=== PATIENT | male | born 1940 | race Caucasian/White ===

== ENCOUNTER → 2020-09-11 08:30 | Outpatient (BNVA) | payer MEDICARE, SELFPAY | PROVIDERS: PCP Internal Medicine; Visit Provider Hospitalist | DX: J44.9 Chronic obstructive pulmonary disease, unspecified (principal); G47.33 Obstructive sleep apnea (adult) (pediatric); I48.91 Unspecified atrial fibrillation; Z79.01 Long term (current) use of anticoagulants; Z79.899 Other long term (current) drug therapy; Z99.89 Dependence on other enabling machines and devices | CPT/HCPCS: 99212 ==

== ENCOUNTER 2021-03-12 08:59 | Outpatient (REF) | payer MEDICARE, SELFPAY ==
--- NOTE | 2021-03-12 17:46 | PFT_ITS ---
INDICATION: COPD. SPIROMETRY: The FEV1 to FVC of 71% post bronchodilators, 65% pre-bronchodilators. The FEV1 is 2.69 L, which is 86% predicted, and an FVC of 2.78 L, which is 86% predicted. No significant response to bronchodilators noted. Maximum voluntary ventilation 107% predicted. LUNG VOLUMES: Total lung capacity 87% predicted with an expiratory reserve volume of 48% predicted likely from elevated BMI. DIFFUSION CAPACITY: DLCO 64% predicted. COMPARISONS: Not available. INTERPRETATION: There is an obstructive ventilatory defect consistent with mild COPD. The patient does have some degree of reversibility suggesting asthma/COPD overlap syndrome. The maximum voluntary ventilation is within normal limits. Lung volumes are within normal limits except for decrease in the ERV secondary to likely an elevated BMI. There is some mild diffusion impairment secondary to likely emphysema and other parenchymal lung conditions should be considered. Clinical correlation warranted. MD MARIAN Joshua/MODL / [id number]
== END 2021-03-12 09:00 | disposition home or self-care (01) ==
LOC: HO.RESP 08:59
PROVIDERS: PCP Internal Medicine; Visit Provider Hospitalist
DX: J44.9 Chronic obstructive pulmonary disease, unspecified (principal)
CPT/HCPCS: 94060; 94727; 94729; 99212

== ENCOUNTER → 2022-11-21 08:59 | Outpatient (BNVA) | payer MEDICARE, SELFPAY | PROVIDERS: PCP Internal Medicine; Visit Provider Hospitalist | DX: J41.0 Simple chronic bronchitis (principal); G47.33 Obstructive sleep apnea (adult) (pediatric); Z79.899 Other long term (current) drug therapy; Z99.89 Dependence on other enabling machines and devices | CPT/HCPCS: 99212 ==

== ENCOUNTER → 2023-03-02 09:18 | Outpatient (BNVA) | payer MEDICARE, SELFPAY | PROVIDERS: PCP Internal Medicine; Visit Provider Hospitalist | DX: J41.0 Simple chronic bronchitis (principal); G47.33 Obstructive sleep apnea (adult) (pediatric); Z99.89 Dependence on other enabling machines and devices | CPT/HCPCS: 99212 ==

== ENCOUNTER 2024-03-28 08:31 | Outpatient (AMB) | payer MEDICARE, SELFPAY ==
[2024-03-28 08:36] VITALS: BP 124/70; PULSE 80; O2SAT 96; BMI 32.5
--- NOTE | 2024-03-28 08:36 | MHC.OFFVIS ---
Vital Signs 03/28/24 08:36 Height 6 ft Weight 240 lb BMI 32.5 BP 124/70 Blood Pressure Location Lt brachial Position Sitting Pulse 80 Pulse Source Pulse Oximeter Pulse Oximetry (%) 96 Oxygen Delivery Method Room Air Intake Visit Reasons: COPD [employer] Required: No Allergies No Known Allergies Allergy (Verified 03/28/24 08:39) HPI Comments Details: The patient is a 83-year-old gentleman with a known history of cigar smoking for many years in addition to history of obstructive sleep apnea on CPAP, CAD and also atrial fibrillation on Eliquis. Patient states that he has been short of breath now for many months. Apparently seems to be getting worse. Usually the shortness of breath occurs when he is climbing a flight of stairs a going up an incline. He starts having issues with his breathing. He denies any significant cough or productive sputum. He denies any chest pain. He has been evaluated for his cardiac disease. He did have a cardiac catheterization finding minimal disease not requiring percutaneous intervention. He did have a chest x-ray done at [facility], but, I do not have any access at this time. Will request to evaluate. In the office we did go for brief walking oximetry in his heart rate did increase quickly to 130 and his pulse ox maintained around 95 96%. Patient became minimally symptomatic when his heart rate increased. 11/21/2022 the patient has a telehealth visit. Overall the patient is doing well. Unfortunately, his CPAP is no longer working appropriately. The machine is signaling that is no longer effective and that he needs to get a replacement. He did call the [employer] company and they recommended that he get any script in order to get and replacement CPAP. He does uses CPAP every night. The CPAP therapy has been affecting beneficial for many years. He does use it for more than 4 hours a night. Therefore, will go ahead and send a script to his [employer] company, [employer] for replacement AirSense 11 APAP. He should bring it in the springtime in order for us to further adjusted. From a respiratory status patient is doing well he continues with current respiratory regimen. He has not required any recent antibiotics or prednisone. He continues on his blood thinners. Otherwise patient is without any other complaints. Will follow-up in the spring once he gets his new machine. 03/02/2023 the patient is here for a pulmonary follow-up visit. Overall the patient has been doing well. He is finally getting his new CPAP. She will be getting in the next few weeks. Hopefully after he gets that I can get access to air p.o. and assess his response to therapy. The patient has been using CPAP for many years and he is accustomed to it any cannot sleep without it. He does use it for more than 4 hours a night. In the meantime his respiratory status has been at baseline. She continues use the Incruse with good effect. Denies any significant shortness of breath or chest tightness or coughing. No recent x-rays that he has had. His last PFTs demonstrated mild COPD. It looks like the patient may need to undergo a total knee replacement because of his significant osteoarthritis of the right knee. Although he still contemplating it. I did review the risks with him in regards of his underlying respiratory condition. He only carries a mild risk for any perioperative pulmonary complications and I do believe that he will tolerate anesthesia and surgery very well from a respiratory status. The patient may also need a pneumonia vaccine I did recommend he get the Prevnar 20. He will talk to his in consider getting it at the local pharmacy. Will follow-up in a year's time or sooner if treat any new issues arise. 03/28/2024 the patient is here for a pulmonary follow-up visit. The patient overall has been doing well. He is upset that he has not been able to get his Incruse. I did send to the pharmacy now with 11 refills so he should not have any issues. The Incruse has been effective for him. He does needed regularly. Specially during his hot and humid months started coming up. The patient has not had to use any rescue medicine. In the meantime he has been using the CPAP. The CPAP therapy continues to be affecting beneficial. He uses more than 4 hours a night. I did download the data on seems like his AHI is elevated up to 12. He is currently set up with an APAP 6-18. Average pressure is around 9 in sometimes he goes up to 16 cm. Therefore I did increase the pressures up to 18-20. Hopefully his AHI goes a little better. About 5 of the events were central apneas therefore he may have a component of complex sleep apnea so we have to monitor closely for any worsening central apneas on the higher pressure. The patient will try the pressures then let me know if he does not tolerate him I can switch him back. In the meantime he will talk to his primary care doctor about getting the Prevnar 20. He should also get the RSV vaccine. And should also get the flu shot. He is already gotten his COVID vaccinations. As far as imaging studies we do not have anything on file. Therefore he will have an x-ray when it is convenient for him. He has any worsening symptoms or concerns she can always call for an earlier assessment. Otherwise I will see him in a year. [facility] Medical History (Updated 03/28/24 @ 20:45 by Damion Singleton MD) Pneumonia Afib REX on CPAP COPD (chronic obstructive pulmonary disease) Social History (Updated 11/21/22 @ 09:01 by KIRA Ortiz) Patient Tobacco Use Status: Former Tobacco user Tobacco use type: Cigarette Years Smoked: 25 Years Review of Systems Const Denies daytime sleepiness, Denies night sweats and Denies snoring ENT Denies change in voice, Denies lip swelling, Denies mouth pain, Reports nasal congestion, Reports nasal discharge and Denies tongue swelling Card Denies chest pain Resp Denies cough and Denies snoring GI Denies abdominal pain Musc Reports as per HPI, Reports abnormal gait, Reports arthralgias and Reports joint swelling Neuro Denies Neuro-related abnormal movements and Reports abnormal gait Psych Denies no additional complaints Julio César/Lymph Denies easy bleeding and Denies lymphadenopathy Aller/Immun Denies lip swelling and Denies tongue swelling Physical Exam Vital Signs: Last Vital Signs Pulse 80 03/28/24 08:36 BP 124/70 03/28/24 08:36 Pulse Ox 96 03/28/24 08:36 Oxygen Delivery Method Room Air 03/28/24 08:36 BMI result Body Mass Index 32.5 Const General: alert Neck Neck: Yes normal visual inspection, Yes full ROM and Yes no lymphadenopathy Chest Chest palpation & inspection: normal inspection of the chest Resp Auscultation: diminished lung sounds Cardio Rate: regular rate Rhythm: regular rhythm Heart sounds: S1 normal heart sound present and S2 normal heart sound present GI Palpation (GI): Soft to palpation and nontender Auscultation: normal bowel sounds Skin General skin exam: rashes and/or lesions noted Assessment & Plan Assessment & Plan (1) REX on CPAP: Code(s): G47.33 - Obstructive sleep apnea (adult) (pediatric); Z99.89 - Dependence on other enabling machines and devices Category: Medical (2) COPD (chronic obstructive pulmonary disease): Code(s): J44.9 - Chronic obstructive pulmonary disease, unspecified Category: Medical Qualifiers: COPD type: chronic bronchitis Chronic bronchitis type: simple Qualified Code(s): J41.0 - Simple chronic bronchitis Plan Continue Incruse daily HENOK as needed continue APAP, AHI is elevated 12, increase APAP 6-18 to 8-20 CXR F/U 12 months Orders: Orders XR chest 2V Today J41.0 - Simple chronic bronchitis Medications: Refilled Incruse Ellipta 62.5 mcg/actuation (umeclidinium) 1 inh inhalation DAILY 30 ea 11RF NS J41.0 - Simple chronic bronchitis Coding Level of Care Code Est Pt Level 4 (37649) Diagnoses REX on CPAP G47.33; Z99.89 Simple chronic bronchitis J41.0 COPD type: chronic bronchitis Chronic bronchitis type: simple Time Spent (min) 16
== END 2024-03-28 08:55 | disposition home or self-care (01) ==
PROVIDERS: PCP Internal Medicine; Visit Provider Hospitalist
DX: G47.33 Obstructive sleep apnea (adult) (pediatric) (principal); Z99.89 Dependence on other enabling machines and devices; J41.0 Simple chronic bronchitis
CPT/HCPCS: 99214

== ENCOUNTER → 2024-03-28 08:31 | Outpatient (BNVA) | payer MEDICARE, SELFPAY | PROVIDERS: PCP Internal Medicine; Visit Provider Hospitalist | DX: G47.33 Obstructive sleep apnea (adult) (pediatric) (principal); J41.0 Simple chronic bronchitis; Z99.89 Dependence on other enabling machines and devices | CPT/HCPCS: 99212 ==

== ENCOUNTER 2024-08-01 10:17 | Outpatient (REF) | payer MEDICARE, SELFPAY ==
--- NOTE | ~2024-08-01 | XR_ITS ---
EXAMINATION: XR CHEST 2 VIEWS CLINICAL INFORMATION: Simple chronic bronchitis. COMPARISON: None. TECHNIQUE: Frontal and lateral views of the chest were obtained. FINDINGS: The heart, great vessels, pulmonary vasculature and mediastinum are normal. There is atherosclerotic calcification of the aortic knob. The lungs show no focal infiltrate, effusion or pneumothorax. There is mild bilateral peribronchial wall thickening. There is no acute osseous abnormality. XR/XR chest 2V IMPRESSION: 1. No focal infiltrate or congestive heart failure is seen. 2. There is mild peribronchial wall thickening, consistent with the provided history of chronic bronchitis. Electronically signed by: Rupert Coleman MD 08/01/2024 05:08 PM EDT
== END 2024-08-01 10:18 | disposition home or self-care (01) ==
LOC: HO.XRAY 10:17
PROVIDERS: PCP Internal Medicine; Visit Provider Hospitalist
DX: J41.0 Simple chronic bronchitis (principal)
CPT/HCPCS: 71046

== ENCOUNTER 2025-07-25 08:25 | Outpatient (AMB) | payer MEDICARE, SELFPAY ==
--- NOTE | 2025-07-25 08:29 | MHC.OFFVIS ---
Vital Signs 07/25/25 08:30 Height 6 ft Weight 245 lb 13.047 oz BMI 33.3 BP 142/78 H Blood Pressure Location Lt brachial Position Sitting Pulse 83 Pulse Source Pulse Oximeter Pulse Oximetry (%) 96 Oxygen Delivery Method Room Air Intake Visit Reasons: COPD Filter Tank Tender Required: No Accompanied by: Self / Same As Patient Allergies No Known Allergies Allergy (Verified 07/25/25 08:32) HPI Comments Details: The patient is a 85-year-old gentleman with a known history of cigar smoking for many years in addition to history of obstructive sleep apnea on CPAP, CAD and also atrial fibrillation on Eliquis. Patient states that he has been short of breath now for many months. Apparently seems to be getting worse. Usually the shortness of breath occurs when he is climbing a flight of stairs a going up an incline. He starts having issues with his breathing. He denies any significant cough or productive sputum. He denies any chest pain. He has been evaluated for his cardiac disease. He did have a cardiac catheterization finding minimal disease not requiring percutaneous intervention. He did have a chest x-ray done at [facility], but, I do not have any access at this time. Will request to evaluate. In the office we did go for brief walking oximetry in his heart rate did increase quickly to 130 and his pulse ox maintained around 95 96%. Patient became minimally symptomatic when his heart rate increased. 11/21/2022 the patient has a telehealth visit. Overall the patient is doing well. Unfortunately, his CPAP is no longer working appropriately. The machine is signaling that is no longer effective and that he needs to get a replacement. He did call the [employer] company and they recommended that he get any script in order to get and replacement CPAP. He does uses CPAP every night. The CPAP therapy has been affecting beneficial for many years. He does use it for more than 4 hours a night. Therefore, will go ahead and send a script to his [employer] company, [employer] for replacement AirSense 11 APAP. He should bring it in the springtime in order for us to further adjusted. From a respiratory status patient is doing well he continues with current respiratory regimen. He has not required any recent antibiotics or prednisone. He continues on his blood thinners. Otherwise patient is without any other complaints. Will follow-up in the spring once he gets his new machine. 03/02/2023 the patient is here for a pulmonary follow-up visit. Overall the patient has been doing well. He is finally getting his new CPAP. She will be getting in the next few weeks. Hopefully after he gets that I can get access to air p.o. and assess his response to therapy. The patient has been using CPAP for many years and he is accustomed to it any cannot sleep without it. He does use it for more than 4 hours a night. In the meantime his respiratory status has been at baseline. She continues use the Incruse with good effect. Denies any significant shortness of breath or chest tightness or coughing. No recent x-rays that he has had. His last PFTs demonstrated mild COPD. It looks like the patient may need to undergo a total knee replacement because of his significant osteoarthritis of the right knee. Although he still contemplating it. I did review the risks with him in regards of his underlying respiratory condition. He only carries a mild risk for any perioperative pulmonary complications and I do believe that he will tolerate anesthesia and surgery very well from a respiratory status. The patient may also need a pneumonia vaccine I did recommend he get the Prevnar 20. He will talk to his in consider getting it at the local pharmacy. Will follow-up in a year's time or sooner if treat any new issues arise. 03/28/2024 the patient is here for a pulmonary follow-up visit. The patient overall has been doing well. He is upset that he has not been able to get his Incruse. I did send to the pharmacy now with 11 refills so he should not have any issues. The Incruse has been effective for him. He does needed regularly. Specially during his hot and humid months started coming up. The patient has not had to use any rescue medicine. In the meantime he has been using the CPAP. The CPAP therapy continues to be affecting beneficial. He uses more than 4 hours a night. I did download the data on seems like his AHI is elevated up to 12. He is currently set up with an APAP 6-18. Average pressure is around 9 in sometimes he goes up to 16 cm. Therefore I did increase the pressures up to 18-20. Hopefully his AHI goes a little better. About 5 of the events were central apneas therefore he may have a component of complex sleep apnea so we have to monitor closely for any worsening central apneas on the higher pressure. The patient will try the pressures then let me know if he does not tolerate him I can switch him back. In the meantime he will talk to his primary care doctor about getting the Prevnar 20. He should also get the RSV vaccine. And should also get the flu shot. He is already gotten his COVID vaccinations. As far as imaging studies we do not have anything on file. Therefore he will have an x-ray when it is convenient for him. He has any worsening symptoms or concerns she can always call for an earlier assessment. Otherwise I will see him in a year. 07/25/2025 the patient is here for pulmonary follow-up visit. Overall he is doing okay although he complains of increasing dyspnea on exertion. Thinks that he was able to do before he can not do as easily. He has been more breathless. He has also gained some weight. The patient also has atrial fibrillation and has blood thinners for that. He has been on Incruse for long time and he has also been on CPAP therapy which has been affecting beneficial. He does use it for more than 4 hours a night. We did download the CPAP and appears that his AHI is elevated he also has a component of central apneas. Therefore we adjusted the CPAP from 8-20 to 10-16 with a ramp of 8. Will see tolerate start to try to minimize the central apneas and also optimize the obstructive therapy. We did go for brief walking oximetry. The patient has oxygen was within normal limits throughout the ambulation in the high 90s. However, heart rate did increase to the 130s and was regularly irregular consistent with his AFib. I do believe that in part his shortness breath is from the increased tachyarrhythmia when he does exert himself. In the meantime though he has been on Incruse for long time so therefore will maximize his respiratory therapy by switching her over to [facility] to have maximum respiratory coverage. Will plan to do pulmonary function studies. The patient also had an x-ray back in March which without any acute disease. I did personally review. 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 He is concerned for potential asbestos exposure. Will go ahead and request a CAT scan to better address any interstitial lung disease due to pneumoconiosis. Will follow-up after the CAT scan after the PFTs. Will see how he does with the additional medication and he will follow-up with Cardiology regarding the increased heart rate. [facility] Medical History (Updated 07/25/25 @ 20:23 by Damion Singleton MD) Dyspnea Chronic cough Pneumonia Afib REX on CPAP COPD (chronic obstructive pulmonary disease) Social History Patient Tobacco Use Status: Former Tobacco user Tobacco use type: Cigarette Years Smoked: 25 Years Review of Systems Const Denies daytime sleepiness, Denies night sweats and Denies snoring ENT Denies change in voice, Denies lip swelling, Denies mouth pain, Reports nasal congestion, Reports nasal discharge and Denies tongue swelling Card Denies chest pain and Reports dyspnea on exertion Resp Denies cough, Reports dyspnea on exertion and Denies snoring GI Denies abdominal pain Musc Reports as per HPI, Reports abnormal gait, Reports arthralgias and Reports joint swelling Neuro Denies Neuro-related abnormal movements and Reports abnormal gait Psych Denies no additional complaints Julio César/Lymph Denies easy bleeding and Denies lymphadenopathy Aller/Immun Denies lip swelling and Denies tongue swelling Physical Exam Vital Signs: Last Vital Signs Pulse 83 07/25/25 08:30 BP 142/78 H 07/25/25 08:30 Pulse Ox 96 07/25/25 08:30 Oxygen Delivery Method Room Air 07/25/25 08:30 BMI result Body Mass Index 33.3 Const General: alert Neck Neck: Yes normal visual inspection, Yes full ROM and Yes no lymphadenopathy Chest Chest palpation & inspection: normal inspection of the chest Resp Auscultation: diminished lung sounds Cardio Rate: regular rate Rhythm: regular rhythm Heart sounds: S1 normal heart sound present and S2 normal heart sound present GI Palpation (GI): Soft to palpation and nontender Auscultation: normal bowel sounds Skin General skin exam: rashes and/or lesions noted Assessment & Plan Assessment & Plan (1) REX on CPAP: Code(s): G47.33 - Obstructive sleep apnea (adult) (pediatric); Z99.89 - Dependence on other enabling machines and devices Category: Medical (2) COPD (chronic obstructive pulmonary disease): Code(s): J44.9 - Chronic obstructive pulmonary disease, unspecified Category: Medical Qualifiers: COPD type: chronic bronchitis Chronic bronchitis type: simple Qualified Code(s): J41.0 - Simple chronic bronchitis (3) Chronic cough: Code(s): R05.3 - Chronic cough Category: Medical (4) Dyspnea: Code(s): R06.00 - Dyspnea, unspecified Category: Medical Qualifiers: Dyspnea type: dyspnea on exertion Qualified Code(s): R06.09 - Other forms of dyspnea Plan stop Incruse daily start trelegy HENOK as needed PFTs CT chest continue APAP, AHI is elevated 12, increase APAP 6-18 to 8-20 F/U 3-4 months Orders: Orders CT chest wo IV con Today R05.3 - Chronic cough, R06.00 - Dyspnea, unspecified PFT pulmonary function test Today R05.3 - Chronic cough, R06.00 - Dyspnea, unspecified Medications: New exsapsigiqs-oevmolump-uljanqzn 100-62.5-25 mcg (Trelegy Ellipta) 1 inh inhalation DAILY 60 ea 11RF 30 days J44.9 - Chronic obstructive pulmonary disease, unspecified Discontinued Incruse Ellipta 62.5 mcg/actuation (umeclidinium) Discontinued Reason: Doctor's Order 1 inh inhalation DAILY 30 ea 11RF NS J41.0 - Simple chronic bronchitis Coding Level of Care Code Est Pt Level 4 (35729) Complex EM visit Add On G2211 Diagnoses REX on CPAP G47.33; Z99.89 Simple chronic bronchitis J41.0 COPD type: chronic bronchitis Chronic bronchitis type: simple Chronic cough R05.3 Dyspnea on exertion R06.09 Dyspnea type: dyspnea on exertion Time Spent (min) 17
[2025-07-25 08:30] VITALS: BP 142/78; PULSE 83; O2SAT 96; BMI 33.3
--- OUTSIDE RECORDS SUMMARY | 2025-07-25 09:56 | XMS_ITS ---
Author Name [facility] ([place], [place]) Organization Unknown Encounters Encounter Type Encounter Reason Primary Diagnosis Location Date Ambulatory [facility] 09/06/2024 Care Team Organization Name Specialty Phone Email Start Date End Da te [facility] Patsy Arcos Primary Care 04/21/2025 [facility] 2024 [facility] WENCESLAO HERNANDEZ Primary Care 08/18/2024
--- OUTSIDE RECORDS SUMMARY | 2025-07-25 09:56 | XMS_ITS | Patient Health Record ---
[facility] Organization [facility] Address [address] [place] [address] Care Team Providers Care Supervisor Metal Hanging Name Role Phone LENY MCCOY Unavailable [phone] MARRY HERNANDEZ Unavailable [phone] Allergies No Known Allergies Results Component Value Reference Range Notes GLYCOHEMOGLOBIN PROFILE Reviewed date:09/08/2024 08:07:01 AM Interpretation: Performing Lab: Notes/Report: Residential Lawn Specialist - Beatrice Rubin MD [address] [id number] [employer] a member of [facility] Original Ordering Provider: LENY MCCOY [employer] T[employer] GLYCATED HEMOGLOBIN A1C 5.9 <6.5 % ESTIMATED AVERAGE GLUCOSE 123 TSH Reviewed date:09/07/2024 12:58:38 PM Interpretation: Performing Lab: Notes/Report: Residential Lawn Specialist - Beatrice Rubin MD [address] [place] [address] [employer] a member of [facility] TSH 2.62 0.40-4.00 uIU/ml VITAMIN D, 25-HYDROXY Reviewed date:09/07/2024 12:58:38 PM Interpretation: Performing Lab: Notes/Report: VITAMIN D, 25-HYDROXY 44 30-80 ng/mL LIPID PROFILE Reviewed date:09/07/2024 12:58:58 PM Interpretation: Performing Lab: Notes/Report: CHOLESTEROL 190 0-200 mg/dL TRIGLYCERIDES 146 0-150 mg/dL HDL CHOLESTEROL 48 >40 mg/dL LDL CALCULATED 113 0-100 mg/dL TC-HDLC RATIO 4.0 0-4.4 mg/dL COMPREHENSIVE METABOLIC PANE L Reviewed date:09/07/2024 12:58:58 PM Interpretation: Performing Lab: Notes/Report: Note Original Orderi ng Provider: LENY MCCOY [employer] T[employer] GLUCOSE 163 70-100 mg/dL Reference range applicable to fasting specimens only BUN 23 5-25 mg/dL CREAT 1.30 0.7-1.3 mg/dL GLOMERULAR FILTRATION RATE 55 >60 This eGFR result was calculated using the CKD-EPI 2020 Creatinine Equation SODIUM 140 135-145 mEq/L POTASSIUM 4.5 3.5-5.5 mmol/L CHLORIDE 105 96-110 mmol/L CO2 30 21-32 mmol/L ANION GAP 5 3-11 CALCIUM 10.3 8.5-10.5 mg/dL TOTAL PROTEIN 6.8 6.0-8.0 G/dL ALBUMIN 3.7 3.2-5.0 G/dL BILI,TOTAL 0.8 0.0-1.4 mg/dL SGOT 19 10-42 U/L SGPT 24 10-60 U/L ALK PHOS 85 42-121 U/L URINALYSIS WITH REFLEX MICRO SCOPIC Reviewed date:03/09/2025 11:42:06 AM Interpretation: Performing Lab: Notes/Report: Specific [place] Urine 1.021 1.003-1.030 pH, Urine 5.5 5.0-8.0 pH Leukocytes, Urine Trace Negative Nitrite, Urine Negative Negative Protein, Urine 30 <=Trace mg/dL Glucose, Urine Negative Negative mg/dL Ketones, Urine Negative Negative mg/dL Urobilinogen, Urine 1.0 0.2-1.0 mg/dL Bilirubin, Urine Negative Negative Blood, Urine Negative Negative RBC, Urine 4.4 0-4 /HPF WBC, Urine 1.2 0-4 /HPF Squamous Epithelial, Urine 7 0-60 /LPF Bacteria, Urine Negative Negative /HPF Hyaline Casts, Urine 1.2 0-3 /LPF HEMOGLOBIN A1C Reviewed date:03/10/2025 07:35:01 AM Interpretation: Performing Lab: Notes/Report: Hemoglobin A1C 6.1 <6.5 % Mean Bld Glu Estim. 128 THYROID STIMULATING HORMONE WITH REFLEX TO FREE T4 AND FREE T3 Reviewed date:03/09/2025 02:40:42 PM Interpretation: Performing Lab: Notes/Report: TSH 2.48 0.40-4.00 mcIU/mL COMPREHENSIVE METABOLIC PANE L Reviewed date:03/09/2025 12:33:23 PM Interpretation: Performing Lab: Notes/Report: Sodium 143 133-145 mmol/L Potassium 4.6 3.5-5.5 mmol/L Chloride 107 96-110 mmol/L CO2 28 21-32 mmol/L Anion Gap 8 3-11 Glucose 117 70-100 mg/dL BUN 17 5-25 mg/dL Creatinine 1.20 0.70-1.30 mg/dL eGFR 60 >=60 mL/min/1.73m2 Calculati on based on the?Chronic Kidney Disease Epidemiology Collaboration (CKD-EPI) equation refit?without adjustment for race. BUN/Creatinine Ratio 14.2 Calcium 9.7 8.5-10.5 mg/dL AST (SGOT) 15 10-42 unit/L ALT (SGPT) 21 10-60 unit/L Alkaline Phosphatase 83 42-121 unit/L Total Protein 6.9 6.0-8.0 g/dL Albumin 3.7 3.2-5.0 g/dL Total Bilirubin 1.1 0.0-1.4 mg/dL VITAMIN D 25 HYDROXY Reviewed date:03/09/2025 01:19:03 PM Interpretation: Performing Lab: Notes/Report: Vit D, 25-Hydroxy 49.2 30.0-80.0 ng/mL LIPID PANEL WITH REFLEX TO D IRECT LDL Reviewed date:03/09/2025 12:33:27 PM Interpretation: Performing Lab: Notes/Report: Cholesterol 168 0-200 mg/dL Triglycerides 97 0-150 mg/dL HDL 49 >=40 mg/dL LDL Calculated 100 0-100 mg/dL VLDL Cholesterol Ronald 19.4 Non HDL Chol. (LDL+VLDL) 119 <145 mg/dL Chol/HDL Ratio 3.4 0.0-4.4 CBC WITH AUTO DIFFERENTIAL Reviewed date:03/09/2025 12:33:23 PM Interpretation: Performing Lab: Notes/Report: WBC 7.7 4.8-10.8 K/mcL RBC 5.20 4.50-5.50 M/mcL Hemoglobin 15.4 13.5-17.5 g/dL Hematocrit 47.6 42.0-54.0 % MCV 92.1 79.0-98.0 FL MCH 29.8 27.0-32.0 pcg MCHC 32.4 32.0-37.0 g/dL RDW 14.1 11.0-15.0 % Platelets 207 130-400 K/mcL MPV 12.2 7.0-11.0 FL NRBC 0.0 <1.0 % NRBC Absolute 0.00 <0.10 K/mcL Neutrophils Relative 73.5 Lymphocytes Relative 15.0 Monocytes Relative 8.9 Eosinophils Relative 1.2 Basophils Relative 0.9 Immature Granulocytes Relative 0.5 Neutrophils Absolute 5.68 1.50-7.00 K/mcL Lymphocytes Absolute 1.16 1.00-5.00 K/mcL Monocytes Absolute 0.69 0.20-1.00 K/mcL Eosinophils Absolute 0.09 0.00-0.50 K/mcL Basophils Absolute 0.07 0.00-0.20 K/mcL Immature Granulocytes Absolute 0.04 0.00-0.03 K/mcL UA WITH CULTURE IF INDICATED Reviewed date:09/07/2024 11:41:47 AM Interpretation: Performing Lab: Notes/Report: Original Ordering Provider: LENY MCCOY NP [employer] a member of [address] [address] Residential Lawn Specialist - Beatrice Rubin MD GLUCOSE, (UA) NEGATIVE NEGATIVE mg/dL BILIRUBIN, URINE NEGATIVE NEGATIVE KETONE, URINE TRACE NEGATIVE mg/dL SPECIFIC GRAVITY, URINE 1.023 1.003-1.030 BLOOD, URINE NEGATIVE NEGATIVE PH, URINE 5.5 5.0-8.0 PROTEIN, URINE 30 <= TRACE mg/dl UROBILINOGEN, URINE 1.0 0.2-1.0 E.U./dL NITRITE, URINE NEGATIVE NEGATIVE LEUKOCYTE ESTERASE, URINE NEGATIVE NEGATIVE RBC, URINE 2 0-4 /HPF WBC, URINE 1 0-4 /HPF EPITH CELLS, URINE 13 0-60 /LPF BACTERIA, URINE NEGATIVE NEGATIVE HYALINE CAST, URINE 1 0-3 /LPF CBC WITH AUTO DIFF Reviewed date:09/07/2024 11:42:02 AM Interpretation: Performing Lab: Notes/Report: Original Ordering Provider: LENY MCCOY NP [employer] a member of [address] [address] Residential Lawn Specialist - Beatrice Rubin MD WBC 7.9 4.8-10.8 x10-3/uL RBC 5.1 4.5-5.5 x10-6/uL HEMOGLOBIN 15.2 13.5-17.5 g/dL HEMATOCRIT 46.7 42-54 % MCV 91.2 79-98 fL MCH 29.7 27-32 pg MCHC 32.5 32-37 g/dL RDW 14.6 11-15 % PLT COUNT 213 130-400 x10-3/uL MEAN PLATELET VOLUME 11.8 7-11 fL NRBC % AUTO 0.0 <1 % NEUT % 75.6 LYMPH % 13.0 MONO % 8.5 EOS % 1.3 BASO % 1.0 IMMATURE GRANULOCYTES % 0.6 NRBC # AUTO 0.00 <0.1 x10-3/uL ABSOLUTE NEUT 5.97 1.5-7.0 x10-3/uL LYMPH # 1.03 1-5.0 x10-3/uL MONO # 0.67 0.2-1.0 x10-3/uL EOS # 0.10 0-0.5 x10-3/uL BASO # 0.08 0-0.2 x10-3/uL IMMATURE GRANULOCYTES # 0.05 0-0.03 x10-3/uL Reason For Referral No Information Medications Medication SIG (Take, Route, Frequency, Duration) Notes Start Date End Date Status Vitamin D3 125 MCG (5000 UT) 1 capsule Orally Once a day; Duration: 90 days Active Allopurinol 200 MG 1 tablet Orally Once a day; Duration: 90 days Active Incruse Ellipta 62.5 MCG/ACT INHALE 1 PUFF EVERY DAY Inhalation; Duration: 30 Active Eliquis 5 MG TAKE 1 TABLET BY JEANCARLOS TH TWICE A DAY Oral; Duration: 90 Active Colchicine 0.6 MG 1.2 milligrams (mg) at the first sign of a gout attack, followed by 0.6 mg after 1 hour. Orally once; Duration: 30 days 04/07/2024 Active Allopurinol 100 MG TAKE 1 TABLET BY JEANCARLOS TH TWICE A DAY; Duration: 90 Active Metoprolol Succinate ER 50 MG TAKE 1 TABLET BY MOUTH EVERY DAY Oral; Duration: 90 Active Atorvastatin Calcium 40 MG TAKE 1 TABLET BY MOUTH EVERY DAY; Duration: 90 Active D3 Maximum Strength 125 MCG (5000 UT) TAKE 1 CAPSULE BY MOUTH EVERY DAY FOR 90 DAYS; Duration: 90 Active Lisinopril-hydroCHLOROthiaz perla 20-12.5 MG TAKE 1 TABLET BY MOUTH EVERY DAY; Duration: 90 Active Omeprazole 20 MG TAKE 1 CAPSULE BY MO UTH EVERY DAY 30 MINUTES BEFORE MORNING MEAL; Duration: 90 Active Immunizations Vaccine Route Administration Date Status Comme nts Influenza, high dose seasonal IM Intramuscular 09/14/2023 Administered Pfizer Covid-19 Vaccine Unknown 06/25/2021 Administered prevnar 13 Unknown 07/09/2020 Administered Td (adult) preservative free IM Intramuscular 05/25/2025 Administered Social History Tobacco Use: Social History Observation Description Date Details (start date - stop date) Former Smoker NA - NA Tobacco Use/Smoking Question Answer Notes Are you a former smoker How long has it been since you last smoked? > 10 years Alcohol Screen (Audit-C) Question Answer Notes Did you have a drink contain ing alcohol in the past year? Yes How often did you have a dri nk containing alcohol in the past year? 4 or more times a week (4 points) How many drinks did you have on a typical day when you were drinking in the past year? 1 or 2 drinks (0 point) Points 4 Interpretation Positive Section Notes: Quit Smoking 1988 about 1 pk t a day and started at the age of 17 Quit Smoking 1988 about 1 pk t a day and started at the age of 17 Quit Smoking 1988 about 1 pk t a day and started at the age of 17 Quit Smoking 1988 about 1 pk t a day and started at the age of 17 Quit Smoking 1988 about 1 pk t a day and started at the age of 17 Quit Smoking 1988 about 1 pk t a day and started at the age of 17 Quit Smoking 1988 about 1 pk t a day and started at the age of 17 Quit Smoking 1988 about 1 pk t a day and started at the age of 17 Quit Smoking 1988 about 1 pk t a day and started at the age of 17 Problems Problem Type SNOMED Code ICD Code Onset Dates Problem Status W/U Status Risk Notes Problem Vitamin D deficiency (70548630) Vitamin D deficiency, unspecified (E55.9) Active confirmed Problem Essential hypertensi on (66264795) Essential (primary) hypertension (I10) Active confirmed Problem Adult health examination (860759975) Encounter for general adult medical examination without abnormal findings (Z00.00) Active confirmed Problem Lipid screening (736859530) Encounter for screening for lipoid disorders (Z13.220) Active confirmed Problem Pure hypercholesterolemia (641169975) Pure hypercholesterole xenia, unspecified (E78.00) Active confirmed Problem Hyperlipidaemia (18345401) Hyperlipidemia, unspecified hyperlipidemia type (E78.5) Active confirmed Problem Adult health examination (023557454) Adult general medical exam (Z00.00) Active confirmed Problem Hypothyroidism (61470082) Hypothyroidism, unspecified type (E03.9) Active confirmed Problem Chronic 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, unspecified cause, unspecified site (M1A.9XX0) Active confirmed Problem Vitamin D deficiency (62290085) Vitamin D deficiency (E55.9) Active confirmed Problem Prediabetes (372135232) Pre-diabetes (R73.03) Active confirmed Problem Diabetes mellitus screening (857607595) Diabetes mellitus screening (Z13.1) Active confirmed Problem Use of anticoagulati on (711564690) Chronic anticoagulation (Z79.01) Active confirmed Problem COPD - Chronic obstructive pulmonary disease (48540431) Chronic obstructive pulmonary disease, unspecified COPD type (J44.9) Active confirmed Problem Gastroesophageal reflux disease (822428093) GERD without esophagitis (K21.9) Active confirmed Problem Avitaminosis D (60880989) Avitaminosis D (E55.9) Active confirmed Problem Endocrine/metabolic screening (140942682) Encounter for screening for endocrine disorder (Z13.29) Active confirmed Problem Chronic atrial fibrillation (disorder) (763858555) Chronic a-fib (I48.20) Active confirmed Vital Signs Heart Rate 78 /min 05/25/2025 Oximetry 97 % 05/25/2025 Blood pressure diastolic 82 mm Hg 05/25/2025 Height 70 in 05/25/2025 Blood pressure systolic 128 mm Hg 05/25/2025 Weight 245 lbs 05/25/2025 BMI 35.15 kg/m2 05/25/2025 Encounters Encounter Location Date Provider Diagnosis [facility] [address] [place] [id number] 09/15/2024 LENY MCCOY Annual physical exam Z00.00 ; Encounter for screening for depression Z13.31 ; Encounter for screening for other disorder Z13.89 ; Essential (primary) hypertension I10 ; Chronic anticoagulation Z79.01 ; Chronic obstructive pulmonary disease, unspecified COPD type J44.9 ; Pure hypercholesterolemia, unspecified E78.00 ; Chronic gout without tophus, unspecified cause, unspecified site M1A.9XX0 ; Chronic a-fib I48.20 and Pre-diabetes R73.03 [facility] [address] [address] 03/09/2025 LENY BORHOT Essential (primary) hypertension I10 ; Pure hypercholesterolemia, unspecified E78.00 ; Chronic a-fib I48.20 ; Chronic anticoagulation Z79.01 ; Chronic obstructive pulmonary disease, unspecified COPD type J44.9 ; Chronic gout without tophus, unspecified cause, unspecified site M1A.9XX0 and Pre-diabetes R73.03 [facility] [address] [address] 04/12/2025 LENY BORHOT Essential (primary) hypertension I10 ; Pure hypercholesterolemia, unspecified E78.00 ; Chronic a-fib I48.20 ; Chronic anticoagulation Z79.01 ; Chronic obstructive pulmonary disease, unspecified COPD type J44.9 ; Chronic gout without tophus, unspecified cause, unspecified site M1A.9XX0 ; Pre-diabetes R73.03 and Encounter for examination of blood pressure without abnormal findings Z01.30 [facility] [address] [address] 05/25/2025 LENY MCCOY Laceration of right knee, initial encounter S81.011A ; Encounter for examination of blood pressure without abnormal findings Z01.30 and Encounter for immunization Z23 [facility] [address] [address] 10/20/2024 MARRY HERNANDEZ [facility] [address] [address] 05/02/2025 LENY MCCOY [facility] [address] [address] 05/04/2025 MARRY HERNANDEZ [facility] [address] [address] 05/24/2025 LENY MCCOY Assessments Encounter Date Diagnosis (ICD Code) Assessment Notes Treatment Notes Treatment Clinical Notes Section Notes 09/15/2024 Encounter for screening for depression (ICD-10 - Z13.31) Acute Concerns/Problem List: 09/15/2024 Chronic conditions are otherwise stable Most recent echocardiogram May 2024 reviewed and unremarkable He will get a flu shot at the pharmacy Leaving for [place] in 2 days will see him when he gets back Of note, some information is being carried forward from prior records for informational purposes only and is being cited so that efficiency, safety and quality of the patient's care is not compromised This note was prepared using voice recognition software and direct typing Please excuse inadvertent career transition specialist or typing errors, or uncorrected word substitutions Although every attempt has been made by the provider to proofread this document, occasional misspellings and typographical errors may still be present Due to the previous pandemic, and the use of personal protective equipment (PPE) This may decrease voice recognition accuracy Inadvertent career transition specialist errors may occur 09/15/2024 Annual physical exam (ICD-10 - Z00.00) Acute Concerns/Problem List: 09/15/2024 Chronic conditions are otherwise stable Most recent echocardiogram May 2024 reviewed and unremarkable He will get a flu shot at the pharmacy Leaving for [place] in 2 days will see him when he gets back Of note, some information is being carried forward from prior records for informational purposes only and is being cited so that efficiency, safety and quality of the patient's care is not compromised This note was prepared using voice recognition software and direct typing Please excuse inadvertent career transition specialist or typing errors, or uncorrected word substitutions Although every attempt has been made by the provider to proofread this document, occasional misspellings and typographical errors may still be present Due to the previous pandemic, and the use of personal protective equipment (PPE) This may decrease voice recognition accuracy Inadvertent career transition specialist errors may occur 03/09/2025 Essential (primary) hypertension (ICD-10 - I10) Acute Concerns/Problem List: 03/09/2025 Chronic conditions are otherwise stable _update labs see him back for Medicare wellness visit in 6 to 8 weeks Of note, some information is being carried forward from prior records for informational purposes only and is being cited so that efficiency, safety and quality of the patient's care is not compromised This note was prepared using voice recognition software and direct typing Please excuse inadvertent career transition specialist or typing errors, or uncorrected word substitutions Although every attempt has been made by the provider to proofread this document, occasional misspellings and typographical errors may still be present Due to the previous pandemic, and the use of personal protective equipment (PPE) This may decrease voice recognition accuracy Inadvertent career transition specialist errors may occur 04/12/2025 Essential (primary) hypertension (ICD-10 - I10) Acute Concerns/Problem List: 04/12/2025 _update MOLST form and healthcare proxy Chronic conditions are otherwise stable LDLs at 100 given this CAD likely should be better than this, discussed increasing atorva to 80 will defer to cardiology and patient agrees Of note, some information is being carried forward from prior records for informational purposes only and is being cited so that efficiency, safety and quality of the patient's care is not compromised This note was prepared using voice recognition software and direct typing Please excuse inadvertent career transition specialist or typing errors, or uncorrected word substitutions Although every attempt has been made by the provider to proofread this document, occasional misspellings and typographical errors may still be present Due to the previous pandemic, and the use of personal protective equipment (PPE) This may decrease voice recognition accuracy Inadvertent career transition specialist errors may occur 05/25/2025 Encounter for examination of blood pressure without abnormal findings (ICD-10 - Z01.30) 1.5inch by 1.5inch superficial laceration to right knee with no warmth, erythema, or edema. Dressed wound, provided return precautions Provided Td vaccine Of note, some information is being carried forward from prior records for informational purposes only and is being cited so that efficiency, safety and quality of the patient's care is not compromised This note was prepared using voice recognition software and direct typing Please excuse inadvertent career transition specialist or typing errors, or uncorrected word substitutions Although every attempt has been made by the provider to proofread this document, occasional misspellings and typographical errors may still be present Due to the previous pandemic, and the use of personal protective equipment (PPE) This may decrease voice recognition accuracy Inadvertent career transition specialist errors may occur 05/25/2025 Laceration of right knee, initial encounter (ICD-10 - S81.011A) 1.5inch by 1.5inch superficial laceration to right knee with no warmth, erythema, or edema. Dressed wound, provided return precautions Provided Td vaccine Of note, some information is being carried forward from prior records for informational purposes only and is being cited so that efficiency, safety and quality of the patient's care is not compromised This note was prepared using voice recognition software and direct typing Please excuse inadvertent career transition specialist or typing errors, or uncorrected word substitutions Although every attempt has been made by the provider to proofread this document, occasional misspellings and typographical errors may still be present Due to the previous pandemic, and the use of personal protective equipment (PPE) This may decrease voice recognition accuracy Inadvertent career transition specialist errors may occur 05/25/2025 Encounter for immunization (ICD-10 - Z23) 1.5inch by 1.5inch superficial laceration to right knee with no warmth, erythema, or edema. Dressed wound, provided return precautions Provided Td vaccine Of note, some information is being carried forward from prior records for informational purposes only and is being cited so that efficiency, safety and quality of the patient's care is not compromised This note was prepared using voice recognition software and direct typing Please excuse inadvertent career transition specialist or typing errors, or uncorrected word substitutions Although every attempt has been made by the provider to proofread this document, occasional misspellings and typographical errors may still be present Due to the previous pandemic, and the use of personal protective equipment (PPE) This may decrease voice recognition accuracy Inadvertent career transition specialist errors may occur 04/12/2025 Pure hypercholesterolem ia, unspecified (ICD-10 - E78.00) Acute Concerns/Problem List: 04/12/2025 _update MOLST form and healthcare proxy Chronic conditions are otherwise stable LDLs at 100 given this CAD likely should be better than this, discussed increasing atorva to 80 will defer to cardiology and patient agrees Of note, some information is being carried forward from prior records for informational purposes only and is being cited so that efficiency, safety and quality of the patient's care is not compromised This note was prepared using voice recognition software and direct typing Please excuse inadvertent career transition specialist or typing errors, or uncorrected word substitutions Although every attempt has been made by the provider to proofread this document, occasional misspellings and typographical errors may still be present Due to the previous pandemic, and the use of personal protective equipment (PPE) This may decrease voice recognition accuracy Inadvertent career transition specialist errors may occur 03/09/2025 Pure hypercholesterolem ia, unspecified (ICD-10 - E78.00) Acute Concerns/Problem List: 03/09/2025 Chronic conditions are otherwise stable _update labs see him back for Medicare wellness visit in 6 to 8 weeks Of note, some information is being carried forward from prior records for informational purposes only and is being cited so that efficiency, safety and quality of the patient's care is not compromised This note was prepared using voice recognition software and direct typing Please excuse inadvertent career transition specialist or typing errors, or uncorrected word substitutions Although every attempt has been made by the provider to proofread this document, occasional misspellings and typographical errors may still be present Due to the previous pandemic, and the use of personal protective equipment (PPE) This may decrease voice recognition accuracy Inadvertent career transition specialist errors may occur 09/15/2024 Encounter for screening for other disorder (ICD-10 - Z13.89) Acute Concerns/Problem List: 09/15/2024 Chronic conditions are otherwise stable Most recent echocardiogram May 2024 reviewed and unremarkable He will get a flu shot at the pharmacy Leaving for [place] in 2 days will see him when he gets back Of note, some information is being carried forward from prior records for informational purposes only and is being cited so that efficiency, safety and quality of the patient's care is not compromised This note was prepared using voice recognition software and direct typing Please excuse inadvertent career transition specialist or typing errors, or uncorrected word substitutions Although every attempt has been made by the provider to proofread this document, occasional misspellings and typographical errors may still be present Due to the previous pandemic, and the use of personal protective equipment (PPE) This may decrease voice recognition accuracy Inadvertent career transition specialist errors may occur 09/15/2024 Essential (primary) hypertension (ICD-10 - I10) Acute Concerns/Problem List: 09/15/2024 Chronic conditions are otherwise stable Most recent echocardiogram May 2024 reviewed and unremarkable He will get a flu shot at the pharmacy Leaving for [place] in 2 days will see him when he gets back Of note, some information is being carried forward from prior records for informational purposes only and is being cited so that efficiency, safety and quality of the patient's care is not compromised This note was prepared using voice recognition software and direct typing Please excuse inadvertent career transition specialist or typing errors, or uncorrected word substitutions Although every attempt has been made by the provider to proofread this document, occasional misspellings and typographical errors may still be present Due to the previous pandemic, and the use of personal protective equipment (PPE) This may decrease voice recognition accuracy Inadvertent career transition specialist errors may occur 03/09/2025 Chronic a-fib (ICD-10 - I48.20) Acute Concerns/Problem List: 03/09/2025 Chronic conditions are otherwise stable _update labs see him back for Medicare wellness visit in 6 to 8 weeks Of note, some information is being carried forward from prior records for informational purposes only and is being cited so that efficiency, safety and quality of the patient's care is not compromised This note was prepared using voice recognition software and direct typing Please excuse inadvertent career transition specialist or typing errors, or uncorrected word substitutions Although every attempt has been made by the provider to proofread this document, occasional misspellings and typographical errors may still be present Due to the previous pandemic, and the use of personal protective equipment (PPE) This may decrease voice recognition accuracy Inadvertent career transition specialist errors may occur 04/12/2025 Chronic a-fib (ICD-10 - I48.20) Acute Concerns/Problem List: 04/12/2025 _update [facility] form and healthcare proxy Chronic conditions are otherwise stable LDLs at 100 given this CAD likely should be better than this, discussed increasing atorva to 80 will defer to cardiology and patient agrees Of note, some information is being carried forward from prior records for informational purposes only and is being cited so that efficiency, safety and quality of the patient's care is not compromised This note was prepared using voice recognition software and direct typing Please excuse inadvertent career transition specialist or typing errors, or uncorrected word substitutions Although every attempt has been made by the provider to proofread this document, occasional misspellings and typographical errors may still be present Due to the previous pandemic, and the use of personal protective equipment (PPE) This may decrease voice recognition accuracy Inadvertent career transition specialist errors may occur 04/12/2025 Chronic anticoagulation (ICD-10 - Z79.01) Acute Concerns/Problem List: 04/12/2025 _update [facility] form and healthcare proxy Chronic conditions are otherwise stable LDLs at 100 given this CAD likely should be better than this, discussed increasing atorva to 80 will defer to cardiology and patient agrees Of note, some information is being carried forward from prior records for informational purposes only and is being cited so that efficiency, safety and quality of the patient's care is not compromised This note was prepared using voice recognition software and direct typing Please excuse inadvertent career transition specialist or typing errors, or uncorrected word substitutions Although every attempt has been made by the provider to proofread this document, occasional misspellings and typographical errors may still be present Due to the previous pandemic, and the use of personal protective equipment (PPE) This may decrease voice recognition accuracy Inadvertent career transition specialist errors may occur 09/15/2024 Chronic anticoagulation (ICD-10 - Z79.01) Acute Concerns/Problem List: 09/15/2024 Chronic conditions are otherwise stable Most recent echocardiogram May 2024 reviewed and unremarkable He will get a flu shot at the pharmacy Leaving for [place] in 2 days will see him when he gets back Of note, some information is being carried forward from prior records for informational purposes only and is being cited so that efficiency, safety and quality of the patient's care is not compromised This note was prepared using voice recognition software and direct typing Please excuse inadvertent career transition specialist or typing errors, or uncorrected word substitutions Although every attempt has been made by the provider to proofread this document, occasional misspellings and typographical errors may still be present Due to the previous pandemic, and the use of personal protective equipment (PPE) This may decrease voice recognition accuracy Inadvertent career transition specialist errors may occur 03/09/2025 Chronic anticoagulation (ICD-10 - Z79.01) Acute Concerns/Problem List: 03/09/2025 Chronic conditions are otherwise stable _update labs see him back for Medicare wellness visit in 6 to 8 weeks Of note, some information is being carried forward from prior records for informational purposes only and is being cited so that efficiency, safety and quality of the patient's care is not compromised This note was prepared using voice recognition software and direct typing Please excuse inadvertent career transition specialist or typing errors, or uncorrected word substitutions Although every attempt has been made by the provider to proofread this document, occasional misspellings and typographical errors may still be present Due to the previous pandemic, and the use of personal protective equipment (PPE) This may decrease voice recognition accuracy Inadvertent career transition specialist errors may occur 03/09/2025 Chronic obstructive pulmonary disease, unspecified COPD type (ICD-10 - J44.9) Acute Concerns/Problem List: 03/09/2025 Chronic conditions are otherwise stable _update labs see him back for Medicare wellness visit in 6 to 8 weeks Of note, some information is being carried forward from prior records for informational purposes only and is being cited so that efficiency, safety and quality of the patient's care is not compromised This note was prepared using voice recognition software and direct typing Please excuse inadvertent career transition specialist or typing errors, or uncorrected word substitutions Although every attempt has been made by the provider to proofread this document, occasional misspellings and typographical errors may still be present Due to the previous pandemic, and the use of personal protective equipment (PPE) This may decrease voice recognition accuracy Inadvertent career transition specialist errors may occur 09/15/2024 Chronic obstructive pulmonary disease, unspecified COPD type (ICD-10 - J44.9) Acute Concerns/Problem List: 09/15/2024 Chronic conditions are otherwise stable Most recent echocardiogram May 2024 reviewed and unremarkable He will get a flu shot at the pharmacy Leaving for [place] in 2 days will see him when he gets back Of note, some information is being carried forward from prior records for informational purposes only and is being cited so that efficiency, safety and quality of the patient's care is not compromised This note was prepared using voice recognition software and direct typing Please excuse inadvertent career transition specialist or typing errors, or uncorrected word substitutions Although every attempt has been made by the provider to proofread this document, occasional misspellings and typographical errors may still be present Due to the previous pandemic, and the use of personal protective equipment (PPE) This may decrease voice recognition accuracy Inadvertent career transition specialist errors may occur 04/12/2025 Chronic obstructive pulmonary disease, unspecified COPD type (ICD-10 - J44.9) Acute Concerns/Problem List: 04/12/2025 _update [facility] form and healthcare proxy Chronic conditions are otherwise stable LDLs at 100 given this CAD likely should be better than this, discussed increasing atorva to 80 will defer to cardiology and patient agrees Of note, some information is being carried forward from prior records for informational purposes only and is being cited so that efficiency, safety and quality of the patient's care is not compromised This note was prepared using voice recognition software and direct typing Please excuse inadvertent career transition specialist or typing errors, or uncorrected word substitutions Although every attempt has been made by the provider to proofread this document, occasional misspellings and typographical errors may still be present Due to the previous pandemic, and the use of personal protective equipment (PPE) This may decrease voice recognition accuracy Inadvertent career transition specialist errors may occur 04/12/2025 Chronic gout without tophus, unspecified cause, 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) Acute Concerns/Problem List: 04/12/2025 _update [facility] form and healthcare proxy Chronic conditions are otherwise stable LDLs at 100 given this CAD likely should be better than this, discussed increasing atorva to 80 will defer to cardiology and patient agrees Of note, some information is being carried forward from prior records for informational purposes only and is being cited so that efficiency, safety and quality of the patient's care is not compromised This note was prepared using voice recognition software and direct typing Please excuse inadvertent career transition specialist or typing errors, or uncorrected word substitutions Although every attempt has been made by the provider to proofread this document, occasional misspellings and typographical errors may still be present Due to the previous pandemic, and the use of personal protective equipment (PPE) This may decrease voice recognition accuracy Inadvertent career transition specialist errors may occur 03/09/2025 Chronic gout without tophus, unspecified cause, 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) Acute Concerns/Problem List: 03/09/2025 Chronic conditions are otherwise stable _update labs see him back for Medicare wellness visit in 6 to 8 weeks Of note, some information is being carried forward from prior records for informational purposes only and is being cited so that efficiency, safety and quality of the patient's care is not compromised This note was prepared using voice recognition software and direct typing Please excuse inadvertent career transition specialist or typing errors, or uncorrected word substitutions Although every attempt has been made by the provider to proofread this document, occasional misspellings and typographical errors may still be present Due to the previous pandemic, and the use of personal protective equipment (PPE) This may decrease voice recognition accuracy Inadvertent career transition specialist errors may occur 09/15/2024 Pure hypercholesterolem ia, unspecified (ICD-10 - E78.00) Acute Concerns/Problem List: 09/15/2024 Chronic conditions are otherwise stable Most recent echocardiogram May 2024 reviewed and unremarkable He will get a flu shot at the pharmacy Leaving for [place] in 2 days will see him when he gets back Of note, some information is being carried forward from prior records for informational purposes only and is being cited so that efficiency, safety and quality of the patient's care is not compromised This note was prepared using voice recognition software and direct typing Please excuse inadvertent career transition specialist or typing errors, or uncorrected word substitutions Although every attempt has been made by the provider to proofread this document, occasional misspellings and typographical errors may still be present Due to the previous pandemic, and the use of personal protective equipment (PPE) This may decrease voice recognition accuracy Inadvertent career transition specialist errors may occur 09/15/2024 Chronic gout without tophus, unspecified cause, 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) Acute Concerns/Problem List: 09/15/2024 Chronic conditions are otherwise stable Most recent echocardiogram May 2024 reviewed and unremarkable He will get a flu shot at the pharmacy Leaving for [place] in 2 days will see him when he gets back Of note, some information is being carried forward from prior records for informational purposes only and is being cited so that efficiency, safety and quality of the patient's care is not compromised This note was prepared using voice recognition software and direct typing Please excuse inadvertent career transition specialist or typing errors, or uncorrected word substitutions Although every attempt has been made by the provider to proofread this document, occasional misspellings and typographical errors may still be present Due to the previous pandemic, and the use of personal protective equipment (PPE) This may decrease voice recognition accuracy Inadvertent career transition specialist errors may occur 03/09/2025 Pre-diabetes (ICD-10 - R73.03) Acute Concerns/Problem List: 03/09/2025 Chronic conditions are otherwise stable _update labs see him back for Medicare wellness visit in 6 to 8 weeks Of note, some information is being carried forward from prior records for informational purposes only and is being cited so that efficiency, safety and quality of the patient's care is not compromised This note was prepared using voice recognition software and direct typing Please excuse inadvertent career transition specialist or typing errors, or uncorrected word substitutions Although every attempt has been made by the provider to proofread this document, occasional misspellings and typographical errors may still be present Due to the previous pandemic, and the use of personal protective equipment (PPE) This may decrease voice recognition accuracy Inadvertent career transition specialist errors may occur 04/12/2025 Pre-diabetes (ICD-10 - R73.03) Acute Concerns/Problem List: 04/12/2025 _update [facility] form and healthcare proxy Chronic conditions are otherwise stable LDLs at 100 given this CAD likely should be better than this, discussed increasing atorva to 80 will defer to cardiology and patient agrees Of note, some information is being carried forward from prior records for informational purposes only and is being cited so that efficiency, safety and quality of the patient's care is not compromised This note was prepared using voice recognition software and direct typing Please excuse inadvertent career transition specialist or typing errors, or uncorrected word substitutions Although every attempt has been made by the provider to proofread this document, occasional misspellings and typographical errors may still be present Due to the previous pandemic, and the use of personal protective equipment (PPE) This may decrease voice recognition accuracy Inadvertent career transition specialist errors may occur 04/12/2025 Encounter for examination of blood pressure without abnormal findings (ICD-10 - Z01.30) Acute Concerns/Problem List: 04/12/2025 _update [facility] form and healthcare proxy Chronic conditions are otherwise stable LDLs at 100 given this CAD likely should be better than this, discussed increasing atorva to 80 will defer to cardiology and patient agrees Of note, some information is being carried forward from prior records for informational purposes only and is being cited so that efficiency, safety and quality of the patient's care is not compromised This note was prepared using voice recognition software and direct typing Please excuse inadvertent career transition specialist or typing errors, or uncorrected word substitutions Although every attempt has been made by the provider to proofread this document, occasional misspellings and typographical errors may still be present Due to the previous pandemic, and the use of personal protective equipment (PPE) This may decrease voice recognition accuracy Inadvertent career transition specialist errors may occur 09/15/2024 Chronic a-fib (ICD-10 - I48.20) Acute Concerns/Problem List: 09/15/2024 Chronic conditions are otherwise stable Most recent echocardiogram May 2024 reviewed and unremarkable He will get a flu shot at the pharmacy Leaving for [place] in 2 days will see him when he gets back Of note, some information is being carried forward from prior records for informational purposes only and is being cited so that efficiency, safety and quality of the patient's care is not compromised This note was prepared using voice recognition software and direct typing Please excuse inadvertent career transition specialist or typing errors, or uncorrected word substitutions Although every attempt has been made by the provider to proofread this document, occasional misspellings and typographical errors may still be present Due to the previous pandemic, and the use of personal protective equipment (PPE) This may decrease voice recognition accuracy Inadvertent career transition specialist errors may occur 09/15/2024 Pre-diabetes (ICD-10 - R73.03) Acute Concerns/Problem List: 09/15/2024 Chronic conditions are otherwise stable Most recent echocardiogram May 2024 reviewed and unremarkable He will get a flu shot at the pharmacy Leaving for [place] in 2 days will see him when he gets back Of note, some information is being carried forward from prior records for informational purposes only and is being cited so that efficiency, safety and quality of the patient's care is not compromised This note was prepared using voice recognition software and direct typing Please excuse inadvertent career transition specialist or typing errors, or uncorrected word substitutions Although every attempt has been made by the provider to proofread this document, occasional misspellings and typographical errors may still be present Due to the previous pandemic, and the use of personal protective equipment (PPE) This may decrease voice recognition accuracy Inadvertent career transition specialist errors may occur Plan Of Treatment Pending Test Test Name Order Date 25OH VITAMIN D 04/09/2023 CBC (COMPLETE BLOOD COUNT) 04/09/2023 COMPREHENSIVE METABOLIC PANEL 04/09/2023 HEMOGLOBIN A1C 04/09/2023 LIPID PANEL 04/09/2023 TSH 04/09/2023 Insulin Level 04/09/2023 LIPID PANEL, STANDARD 03/10/2024 LIPID PANEL, STANDARD 03/09/2025 COMPREHENSIVE METABOLIC PANEL 03/09/2025 COMPREHENSIVE METABOLIC PANEL 03/10/2024 CBC (INCLUDES DIFF/PLT) 03/10/2024 CBC (INCLUDES DIFF/PLT) 03/09/2025 URINALYSIS, COMPLETE 03/09/2025 URINALYSIS, COMPLETE W/REFLEX TO CULTURE 03/10/2024 HEMOGLOBIN A1c 03/09/2025 HEMOGLOBIN A1c 03/10/2024 TSH 03/10/2024 TSH W/REFLEX TO FT4 03/09/2025 VITAMIN D,25-OH,TOTAL,IA 03/09/2025 VITAMIN D,25-OH,TOTAL,IA 03/10/2024 COMPLETE URINALYSIS 04/09/2023 Next Appt Details Provider Name:LENY DAIRUS, 08/14/2025 08:30:00 AM, [address] [place] [address] [address], [place], [id number], Insurance Providers Payer Name Payer Address Payer Phone Subscriber Number Group Number Insured Name Patient Relationship to Insured Coverage Start Date Coverage End Date Medicare Part B J14 [address] [place] [id number] Serg saravia, Choco Self - patient is the insured 6 [employer] [address] [place] [address] [id number] Choco Patel Self - patient is the insured Medical (General) History Medical History History ICD Code Gout gastroesophageal reflux disease (GERD) hypertension hyperlipidemia coronary artery disease Atrial fibrillation gastric ulcer Hospitalization History Reason Date(Month/Year) Gastric Ulcer GI Bleed/ 4 pint of blood infuse
== END 2025-07-25 09:03 | disposition home or self-care (01) ==
LOC: HO.HPS 08:26
PROVIDERS: PCP Internal Medicine; Visit Provider Hospitalist
DX: G47.33 Obstructive sleep apnea (adult) (pediatric) (principal); Z99.89 Dependence on other enabling machines and devices; J41.0 Simple chronic bronchitis; R05.3 Chronic cough; R06.09 Other forms of dyspnea
CPT/HCPCS: 99214; G2211

== ENCOUNTER → 2025-07-25 08:25 | Outpatient (BNVA) | payer MEDICARE, SELFPAY | PROVIDERS: PCP Internal Medicine; Visit Provider Hospitalist | DX: G47.33 Obstructive sleep apnea (adult) (pediatric) (principal); Z99.89 Dependence on other enabling machines and devices; J41.0 Simple chronic bronchitis; R05.3 Chronic cough; R06.09 Other forms of dyspnea | CPT/HCPCS: 99212 ==

== ENCOUNTER 2025-09-23 09:10 | Outpatient (REF) | payer MEDICARE, SELFPAY ==
--- NOTE | ~2025-09-23 | CT_ITS ---
EXAMINATION: CT CHEST WITHOUT CONTRAST CLINICAL INFORMATION: Chronic cough COMPARISON: X-ray 08/01/2024 TECHNIQUE: Multidetector volumetric CT imaging of the chest was done. Axial MIP volume rendering provided. Sagittal and coronal reformatted images were obtained. This CT examination was performed using dose optimization techniques as appropriate, variously including the following: *Automated exposure control *Adjustment of mA and/or kV according to patient size (this includes techniques or standardized protocols for targeted exams where dose is matched to indication/reason for exam; i.e. extremities or head) *Use of iterative reconstruction technique FINDINGS: LUNGS: Trachea and central airway are patent. Mild peribronchial thickening in the central airway. Focus of tree-in-bud opacities in the right upper lobe.. Multiple small calcified nodules, including 3 mm calcified nodule in the right upper lobe, 2 mm nodule in the right lower lobe. Curvilinear atelectasis/scarring in the right lower lobe. No dense consolidation. MEDIASTINUM: Heart size within normal limits. No pericardial effusion. Ascending aorta measures 3.6 cm. No pathologically enlarged lymph nodes are seen in the mediastinum or [place]. No suspicious thyroid findings. Aortic calcifications present. Esophagus is nondistended. CORONARY ARTERY CALCIFICATION: Present PLEURA: There is no pleural effusion. No pleural mass or thickening. AXILLA: No lymphadenopathy. CHEST WALL: No suspicious findings UPPER ABDOMEN: Mild bilateral perinephric stranding.. OSSEOUS STRUCTURES: No acute or suspicious osseous abnormality. Multilevel thoracic spondylosis. CT/CT chest wo IV con IMPRESSION: * Mild peribronchial thickening of the central airway. Foci of tree-in-bud opacities in the right upper lobe. No dense consolidation * Coronary artery calcifications present. * Mild bilateral perinephric stranding. * Multilevel thoracic spondylosis. Fleischner guidelines were followed. Electronically signed by: Nitesh Medley MD 09/25/2025 08:40 AM [facility]
--- OUTSIDE RECORDS SUMMARY | 2025-09-23 09:14 | XMS_ITS | Data Portability ---
Author Organization [facility], [facility] Address [address] [place] [address] Care Team Providers Care Magnetic Resonance Technologist Name Role Phone MARRY HERNANDEZ Primary Care Provider Assessment Encounter Date Assessment Date Assessment LastModified by Organization Details LastModified Time 06/21/2024 06/21/2024 Patient seen under general supervision of Dr. Vang who was available but who did not see the patient. HPI: 84-year-old seen today for follow-up regarding right knee arthritis. Patient received previous injection which worked well until recently. Has had recurrence of pain. Denies any injuries, falls or trauma. Examination: 84-year-old no acute distress alert and oriented. On examination of the right knee no erythema or warmth noted. Tenderness to palpation appreciated. Calf is soft Impression: Right Knee arthritis Plan: Treatment options are discussed. Role of total knee arthroplasty reviewed. Patient has been doing well with conservative management therefore was offered repeat injection which they accepted, following sterile preparation and informed consent 40 mg Kenalog and 5 cc 1% lidocaine injected into the knee. Patient tolerated procedure well. Postinjection precautions reviewed. Follow-up on a p.r.n. basis. [facility] speech recognition assessment consultant software was used to create portions of this document. An attempt at proofreading has been made to minimize errors. Please call for corrections. [email or web address] Not available 06/21/2024 14:07:33 03/16/2025 03/16/2025 Patient seen under general supervision of Dr. Hernandez who was available but who did not see the patient. HPI: 84-year-old seen today for follow-up regarding right knee arthritis. Patient received previous injection which worked well until recently. Has had recurrence of pain. Denies any injuries, falls or trauma. Examination: 84-year-old no acute distress alert and oriented. On examination of the right knee no erythema or warmth noted. Tenderness to palpation appreciated. Calf is soft Impression: Right Knee arthritis Plan: Treatment options are discussed. Role of total knee arthroplasty reviewed. Patient has been doing well with conservative management therefore was offered repeat injection which they accepted, following sterile preparation and informed consent 40 mg Kenalog and 5 cc 1% lidocaine injected into the knee. Patient tolerated procedure well. Postinjection precautions reviewed. Follow-up on a p.r.n. basis. [facility] speech recognition assessment consultant software was used to create portions of this document. An attempt at proofreading has been made to minimize errors. Please call for corrections. [email or web address] Not available 03/16/2025 14:21:13 Plan of Treatment Reminders Order Date Submit Date Provider Last Modified By Organization Details Last Modified Time Details Appointments None record ed. Lab None record ed. Referral None record ed. Procedures None record ed. Surgeries None record ed. Imaging None record ed. Medication Orders None record ed. Patient TargetsNo targets recorded. Patient InstructionsNo instructions recorded. Reason for Referral None Reported. Procedures Surgical History Date Name Laterality Status Provider Name and Address Organization Details Recorded Time 03/16/2025 JUANITOEE INJ completed Carroll Lockett PA-C [email or web address] [facility], [place], [address], [facility] 03/16/2025 14:20:27 06/21/2024 PERLITAKNEE INJ completed Carroll Lockett PA-C [address], [place], [address], [facility] 06/21/2024 14:06:51 Imaging Results None recorded. Procedure Notes None recorded. Medical Equipment None Reported. Allergies No known drug allergies Medications Name Sig Start Date Stop Date Status Note LastModified by Organization Details LastModified Time atorvastatin 40 mg tablet TAKE 1 TABLET BY MOUTH EVERY DAY active Not Available Not Available No t Available lisinopril 20 mg-hydrochlo rothiazide 12.5 mg tablet TAKE 1 TABLET BY MOUTH EVERY DAY active Not Available Not Available No t Available ofloxacin 0.3 % eye drops INSTILL 1 DROP INTO AFFECTED RIGHT EYE 4 TIMES A DAY active Not Available Not Available Not Available metoprolol succinate ER 50 mg tablet,exten ded release 24 hr TAKE 1 TABLET BY MOUTH EVERY DAY active Not Available Not Available No t Available allopurinol 100 mg tablet TAKE 1 TABLET BY MOUTH TWICE A DAY active Not Available Not Available No t Available ketorolac 0.5 % eye drops ADMINISTER 1 DROP INTO RIGHT EYE FOUR TIMES DAILY. active Not Available Not Available No t Available prednisolone acetate 1 % eye drops,suspen lynn APPLY 1 DROP TOT RIGHT EYE FOUR TIMES A DAY TO THE SURGICAL EYE FOR 1 WEEK THEN TAPER DIRECTED active Not Available Not Available No t Available imiquimod 5 % topical cream packet APPLY THURSDAY THRU THURSDAY EVENINGS, SKIPPING WEEKENDS FOR 6 WEEKS TO SPOT CHEEK. active Not Available Not Available No t Available omeprazole 20 mg capsule,arnold yed release TAKE 1 CAPSULE BY MOUTH EVERY DAY 30 MINUTES BEFORE MORNING MEAL active Not Available Not Available No t Available mupirocin 2 % topical ointment APPLY TWICE A DAY TO SURGICAL SITE FOR 7-14 DAYS OR UNTIL FOLLOW UP active Not Available Not Available No t Available colchicine 0.6 mg tablet TAKE 2 TABLETS BY MOUTH AT ONSET,THEN TAKE 1 TABLET I HOUR LATER active Not Available Not Available N ot Available cholecalcife rol (vitamin D3) 125 mcg (5,000 unit) capsule TAKE 1 CAPSULE BY MOUTH EVERY DAY active Not Available Not Available No t Available Eliquis 5 mg tablet TAKE 1 TABLET BY MOUTH TWICE A DAY active Not Available Not Available No t Available Incruse Ellipta 62.5 mcg/actuatio n powder for inhalation INHALE 1 PUFF DAILY active Not Available Not Available N ot Available Vitals Date Recorded Body height Body mass index (BMI) Body weight Provider Name and Address Organization Details Last Updated DateTime 03/16/2025 182.88 cm 31.9 kg/m2 251672.21 g [facility] 03/16/2025 13:11:31 Date Recorded Body height Body mass index (BMI) Body weight Provider Name and Address Organization Details Last Updated DateTime 06/21/2024 182.88 cm 31.9 kg/m2 852445.21 g [facility] 06/21/2024 13:59:07 Social History None recorded. Functional Status None recorded. Mental Status None recorded. Family History Nothing Reported. Medical History No medical history recorded. Past Encounters Encounter ID Performer Location Encounter Start Date Encounter Closed Date Diagnosis/Indication Diagnosis SNOMED-CT Code Diagnosis ICD10 Code Diagnosis IMO Codes Diagnosis Note [id number] [facility] [address] [place] [address] 06/21/2024 13:42:05 07/12/2024 08:25:06 Osteoarthritis of knee 390331741 M17.9 [id number] Carroll Lockett PA-C [facility] [address] [place] [address] 03/16/2025 12:40:30 03/20/2025 08:44:03 Osteoarthritis of right knee joint 7850412475 61251 M17.11 [id number] Health Concerns Section Related Observation LastModified by Organization Detai ls LastModified Time None Recorded Concern Status LastModified by Organization Details LastModified Time None Recorded Advance Directives Directive None Recorded Payers Insurance Date Sequence Insurance Name Policy Number Policy Chiang Covered Member ID Chiang Member ID Guarantor Name 03/20/2025 2 [place] [id number] Choco Davis [id number] Choco Davis 03/15/2025 1 [place] Choco Davis [id number] Choco Davis
== END 2025-09-23 09:11 | disposition home or self-care (01) ==
LOC: HO.CT 09:10
PROVIDERS: PCP Internal Medicine; Visit Provider Hospitalist
DX: R05.3 Chronic cough (principal); R06.00 Dyspnea, unspecified
CPT/HCPCS: 71250

== ENCOUNTER → 2025-09-23 09:12 | Outpatient (BNV) | payer MEDICARE, SELFPAY | PROVIDERS: PCP Internal Medicine; Visit Provider Radiology Diagnostic Ultrasound | DX: I25.84 Coronary atherosclerosis due to calcified coronary lesion (principal); J98.09 Other diseases of bronchus, not elsewhere classified; M47.814 Spondylosis without myelopathy or radiculopathy, thoracic region; R91.8 Other nonspecific abnormal finding of lung field | CPT/HCPCS: 71250 ==

== ENCOUNTER 2025-10-04 13:45 | Outpatient (REF) | payer MEDICARE, SELFPAY ==
--- NOTE | 2025-10-04 13:49 | PFT_ITS ---
Flows: FEV1: 82 % of predicted at 2.41 L FVC: 89 % of predicted at 3.57 L FEV1/FVC: 67 % Bronchodilator response: Absent Volumes: Total lung capacity: 72 % of predicted at 5.43 L Residual volume: 59 % of predicted at 1.75 L Slow vital capacity: 86 % of predicted at 3.68 L Expiratory reserve volume: 57 % of predicted at 0.77 L Diffusion capacity: Mildly decreased, corrects to normal after adjustment for alveolar ventilation. Impression: Mild obstructive ventilatory defect combined with mild restrictive ventilatory defect with no bronchodilator response. Decreased expiratory reserve volume suggests extrathoracic restriction likely secondary to abdominal obesity. Decreased diffusion capacity suggests emphysema. MTDD
[2025-10-04 14:37] VITALS: PULSE 83
--- OUTSIDE RECORDS SUMMARY | 2025-10-04 16:51 | XMS_ITS | Data Portability ---
Author Organization [facility], [facility] Address [address] [place] [address] Care Team Providers Care Christmas Bell Ringer Name Role Phone MARRY HERNANDEZ Primary Care Provider [phone] Assessment Encounter Date Assessment Date Assessment LastModified [...] precautions reviewed. Follow-up on a p.r.n. basis. [facility] speech recognition data warehousing engineer software was used to create portions of [...] precautions reviewed. Follow-up on a p.r.n. basis. [facility] speech recognition data warehousing engineer software was used to create portions of [...] JUANITOEE INJ completed Carroll Lockett PA-C [address] [facility], [place], [address], [facility] 03/16/2025 14:20:27 06/21/2024 PERLITAKNEE INJ completed Carroll Lockett PA-C [address], [place], [address], [facility] 06/21/2024 14:06:51 Imaging Results None recorded. [...] Updated DateTime 03/16/2025 182.88 cm 31.9 kg/m2 860369.21 g [facility] 03/16/2025 13:11:31 Date Recorded Body height Body mass index (BMI) Body weight Provider Name and Address Organization Details Last Updated DateTime 06/21/2024 182.88 cm 31.9 kg/m2 031132.21 g [facility] 06/21/2024 13:59:07 Social History None recorded. Functional Status None recorded. Mental Status None recorded. Family History Nothing Reported. Medical History No medical history recorded. Past Encounters Encounter ID Performer Location Encounter Start Date Encounter Closed Date Diagnosis/Indication Diagnosis SNOMED-CT Code Diagnosis ICD10 Code Diagnosis IMO Codes Diagnosis Note [id number] [facility] [address] [place] [address] 06/21/2024 13:42:05 07/12/2024 08:25:06 Osteoarthritis of knee 862030079 M17.9 [id number] Carroll Lockett PA-C [facility] [place] [address] [place] [address] 03/16/2025 12:40:30 03/20/2025 08:44:03 Osteoarthritis of right knee joint [id number] 22765 M17.11 [id number] Health Concerns Section Related Observation LastModified by Organization Detai ls LastModified Time None Recorded Concern Status LastModified by Organization Details LastModified Time None Recorded Advance Directives Directive None Recorded Payers Insurance Date Sequence Insurance Name Policy Number Policy Chiang Covered Member ID Chiang Member ID Guarantor Name 03/20/2025 2 [place] [id number] Choco Davis [id number] Choco Davis 03/15/2025 1 [place] Choco Davis [id number] Choco Davis
== END 2025-10-04 13:46 | disposition home or self-care (01) ==
LOC: HO.RESP 13:45
PROVIDERS: PCP Internal Medicine; Visit Provider Hospitalist
DX: R05.3 Chronic cough (principal); R06.00 Dyspnea, unspecified
CPT/HCPCS: 94060; 94640; 94727; 94729

== ENCOUNTER → 2025-10-04 13:49 | Outpatient (BNV) | payer MEDICARE, SELFPAY | PROVIDERS: PCP Internal Medicine; Visit Provider Internal Medicine Pulmonary Disease | DX: J98.4 Other disorders of lung (principal) | CPT/HCPCS: 94060; 94727; 94729 ==

== ENCOUNTER 2025-10-18 09:07 | Outpatient (AMB) | payer MEDICARE, SELFPAY ==
--- NOTE | 2025-10-18 09:16 | MHC.OFFVIS ---
Vital Signs 10/18/25 09:17 Height 6 ft Weight 251 lb 5.231 oz BMI 34.1 BP 146/64 H Blood Pressure Location Lt brachial Position Sitting Pulse 96 Pulse Source Pulse Oximeter Pulse Oximetry (%) 96 Oxygen Delivery Method Room Air Intake Visit Reasons: copd Casing Grader Required: No Accompanied by: Self / Same As Patient Allergies No Known Allergies Allergy (Verified 10/18/25 09:19) HPI Comments Details: The patient is a 85-year-old gentleman with a known history of cigar smoking for many years in addition to history of obstructive sleep apnea on CPAP, CAD and also atrial fibrillation on Eliquis. Patient states that he has been short of breath now for many months. Apparently seems to be getting worse. Usually the shortness of breath occurs when he is climbing a flight of stairs a going up an incline. He starts having issues with his breathing. He denies any significant cough or productive sputum. He denies any chest pain. He has been evaluated for his cardiac disease. He did have a cardiac catheterization finding minimal disease not requiring percutaneous intervention. He did have a chest x-ray done at [facility], but, I do not have any access at this time. Will request to evaluate. In the office we did go for brief walking oximetry in his heart rate did increase quickly to 130 and his pulse ox maintained around 95 96%. Patient became minimally symptomatic when his heart rate increased. 11/21/2022 the patient has a telehealth visit. Overall the patient is doing well. Unfortunately, his CPAP is no longer working appropriately. The machine is signaling that is no longer effective and that he needs to get a replacement. He did call the [employer] company and they recommended that he get any script in order to get and replacement CPAP. He does uses CPAP every night. The CPAP therapy has been affecting beneficial for many years. He does use it for more than 4 hours a night. Therefore, will go ahead and send a script to his [employer] company, [place] for replacement AirSense 11 APAP. He should bring it in the springtime in order for us to further adjusted. From a respiratory status patient is doing well he continues with current respiratory regimen. He has not required any recent antibiotics or prednisone. He continues on his blood thinners. Otherwise patient is without any other complaints. Will follow-up in the spring once he gets his new machine. 03/02/2023 the patient is here for a pulmonary follow-up visit. Overall the patient has been doing well. He is finally getting his new CPAP. She will be getting in the next few weeks. Hopefully after he gets that I can get access to air p.o. and assess his response to therapy. The patient has been using CPAP for many years and he is accustomed to it any cannot sleep without it. He does use it for more than 4 hours a night. In the meantime his respiratory status has been at baseline. She continues use the Incruse with good effect. Denies any significant shortness of breath or chest tightness or coughing. No recent x-rays that he has had. His last PFTs demonstrated mild COPD. It looks like the patient may need to undergo a total knee replacement because of his significant osteoarthritis of the right knee. Although he still contemplating it. I did review the risks with him in regards of his underlying respiratory condition. He only carries a mild risk for any perioperative pulmonary complications and I do believe that he will tolerate anesthesia and surgery very well from a respiratory status. The patient may also need a pneumonia vaccine I did recommend he get the Prevnar 20. He will talk to his in consider getting it at the local pharmacy. Will follow-up in a year's time or sooner if treat any new issues arise. 03/28/2024 the patient is here for a pulmonary follow-up visit. The patient overall has been doing well. He is upset that he has not been able to get his Incruse. I did send to the pharmacy now with 11 refills so he should not have any issues. The Incruse has been effective for him. He does needed regularly. Specially during his hot and humid months started coming up. The patient has not had to use any rescue medicine. In the meantime he has been using the CPAP. The CPAP therapy continues to be affecting beneficial. He uses more than 4 hours a night. I did download the data on seems like his AHI is elevated up to 12. He is currently set up with an APAP 6-18. Average pressure is around 9 in sometimes he goes up to 16 cm. Therefore I did increase the pressures up to 18-20. Hopefully his AHI goes a little better. About 5 of the events were central apneas therefore he may have a component of complex sleep apnea so we have to monitor closely for any worsening central apneas on the higher pressure. The patient will try the pressures then let me know if he does not tolerate him I can switch him back. In the meantime he will talk to his primary care doctor about getting the Prevnar 20. He should also get the RSV vaccine. And should also get the flu shot. He is already gotten his COVID vaccinations. As far as imaging studies we do not have anything on file. Therefore he will have an x-ray when it is convenient for him. He has any worsening symptoms or concerns she can always call for an earlier assessment. Otherwise I will see him in a year. 07/25/2025 the patient is here for pulmonary follow-up visit. Overall he is doing okay although he complains of increasing dyspnea on exertion. Thinks that he was able to do before he can not do as easily. He has been more breathless. He has also gained some weight. The patient also has atrial fibrillation and has blood thinners for that. He has been on Incruse for long time and he has also been on CPAP therapy which has been affecting beneficial. He does use it for more than 4 hours a night. We did download the CPAP and appears that his AHI is elevated he also has a component of central apneas. Therefore we adjusted the CPAP from 8-20 to 10-16 with a ramp of 8. Will see tolerate start to try to minimize the central apneas and also optimize the obstructive therapy. We did go for brief walking oximetry. The patient has oxygen was within normal limits throughout the ambulation in the high 90s. However, heart rate did increase to the 130s and was regularly irregular consistent with his AFib. I do believe that in part his shortness breath is from the increased tachyarrhythmia when he does exert himself. In the meantime though he has been on Incruse for long time so therefore will maximize his respiratory therapy by switching her over to [facility] to have maximum respiratory coverage. Will plan to do pulmonary function studies. The patient also had an x-ray back in March which without any acute disease. I did personally review. 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 He is concerned for potential asbestos exposure. Will go ahead and request a CAT scan to better address any interstitial lung disease due to pneumoconiosis. Will follow-up after the CAT scan after the PFTs. Will see how he does with the additional medication and he will follow-up with Cardiology regarding the increased heart rate. 10/18/2025 the patient is here for pulmonary follow-up visit. Overall the patient is doing okay. Still complaining of the dyspnea on exertion. Moderate severity. He is taking the Trelegy inhaler and seems to be helping. The patient did undergo pulmonary function studies and I did review it with him. He still has a mild obstruction compared to his PFTs from 2020. But now he also has a mild restrictive ventilatory defect. Likely from his body habitus. He did gain significant amount of weight. In addition to that the patient did have a CT scan of the chest that I personally reviewed. No evidence of any parenchymal lung disease. He appears to have a little bronchiolitis in the left upper lobe. But otherwise no other significant findings noted. The patient is agreeable to starting pulmonary rehabilitation at this time. I do believe that the pulmonary rehab will provide him with the benefits that he is looking for. Therefore, will send a prescription over. In addition to this the patient continues use CPAP. CPAP therapy continues to be affecting beneficial. We have adjusted the pressures the last visit and seems to be tolerating it well. Denies any difficulties with it. The therapies affecting beneficial he does use it for more than 4 hours a night. The patient will follow-up in 6 months if he has any issues prior to this she can always call for further recommendations. [facility] Medical History (Updated 07/25/25 @ 20:23 by Damion Singleton MD) Dyspnea Chronic cough Pneumonia Afib REX on CPAP COPD (chronic obstructive pulmonary disease) Social History Patient Tobacco Use Status: Former Tobacco user Tobacco use type: Cigarette Years Smoked: 25 Years Review of Systems Const Denies daytime sleepiness, Denies night sweats and Denies snoring ENT Denies change in voice, Denies lip swelling, Denies mouth pain, Reports nasal congestion, Reports nasal discharge and Denies tongue swelling Card Denies chest pain and Reports dyspnea on exertion Resp Denies cough, Reports dyspnea on exertion and Denies snoring GI Denies abdominal pain Musc Reports as per HPI, Reports abnormal gait, Reports arthralgias and Reports joint swelling Neuro Denies Neuro-related abnormal movements and Reports abnormal gait Psych Denies no additional complaints Julio César/Lymph Denies easy bleeding and Denies lymphadenopathy Aller/Immun Denies lip swelling and Denies tongue swelling Physical Exam Vital Signs: Last Vital Signs Pulse 96 10/18/25 09:17 BP 146/64 H 10/18/25 09:17 Pulse Ox 96 10/18/25 09:17 Oxygen Delivery Method Room Air 10/18/25 09:17 BMI result Body Mass Index 34.1 Const General: alert Neck Neck: Yes normal visual inspection, Yes full ROM and Yes no lymphadenopathy Chest Chest palpation & inspection: normal inspection of the chest Resp Auscultation: diminished lung sounds Cardio Rate: regular rate Rhythm: regular rhythm Heart sounds: S1 normal heart sound present and S2 normal heart sound present GI Palpation (GI): Soft to palpation and nontender Auscultation: normal bowel sounds Skin General skin exam: rashes and/or lesions noted Assessment & Plan Assessment & Plan (1) REX on CPAP: Code(s): G47.33 - Obstructive sleep apnea (adult) (pediatric); Z99.89 - Dependence on other enabling machines and devices Category: Medical (2) COPD (chronic obstructive pulmonary disease): Code(s): J44.9 - Chronic obstructive pulmonary disease, unspecified Category: Medical Qualifiers: COPD type: chronic bronchitis Chronic bronchitis type: simple Qualified Code(s): J41.0 - Simple chronic bronchitis (3) Chronic cough: Code(s): R05.3 - Chronic cough Category: Medical (4) Dyspnea: Code(s): R06.00 - Dyspnea, unspecified Category: Medical Qualifiers: Dyspnea type: dyspnea on exertion Qualified Code(s): R06.09 - Other forms of dyspnea Plan continue trelegy HENOK as needed, sent xopenex start Pulmonary rehab CT chest very mild bronchiolitis GERHARD continue APAP, AHI is still elevated 12->8, increase to 10-18 F/U 6 months Orders: Orders Pulmonary Rehab Today J41.0 - Simple chronic bronchitis Medications: New levalbuterol tartrate 45 mcg/actuation (Xopenex HFA) 2 puffs inhalation Q6H PRN 15 grams 11RF shortness of breath or wheezing 30 days J45.909 - Unspecified asthma, uncomplicated Coding Level of Care Code Est Pt Level 4 (50445) Diagnoses REX on CPAP G47.33; Z99.89 Simple chronic bronchitis J41.0 COPD type: chronic bronchitis Chronic bronchitis type: simple Chronic cough R05.3 Dyspnea on exertion R06.09 Dyspnea type: dyspnea on exertion Time Spent (min) 17
[2025-10-18 09:17] VITALS: BP 146/64; PULSE 96; O2SAT 96; BMI 34.1
== END 2025-10-18 09:37 | disposition home or self-care (01) ==
LOC: HO.HPS 09:07
PROVIDERS: PCP Internal Medicine; Visit Provider Hospitalist
DX: G47.33 Obstructive sleep apnea (adult) (pediatric) (principal); Z99.89 Dependence on other enabling machines and devices; J41.0 Simple chronic bronchitis; R05.3 Chronic cough; R06.09 Other forms of dyspnea
CPT/HCPCS: 99214

== ENCOUNTER → 2025-10-18 09:07 | Outpatient (BNVA) | payer MEDICARE, SELFPAY | PROVIDERS: PCP Internal Medicine; Visit Provider Hospitalist | DX: J41.0 Simple chronic bronchitis (principal); R06.09 Other forms of dyspnea; G47.33 Obstructive sleep apnea (adult) (pediatric); Z99.89 Dependence on other enabling machines and devices | CPT/HCPCS: 99212 ==